=== PATIENT | male | born 2000 | race Caucasian/White ===

== ENCOUNTER 2021-07-31 23:27 | Emergency (ER) | payer BC, OTHER ==
[~2021-07-31] VITALS: Ht 182.8 cm; Wt 120.2 kg
[~2021-07-31 23:27] MED LIST: AMOXICILLIN500 MG PO; BACTRIM 400 MG-1 TAB PO; CIPRODEX 0.3%-7.5 ML OT; INTUNIV4 MG PO; LOMOTIL 0.025 M1 TA1 PO; MOTRIN400 MG PO; NKHM; Zofran4 MG PO
[2021-07-31] MEDS ORDERED: AUGMENTIN 875875 MG PO (23:39)
== END 2021-07-31 23:47 | disposition home or self-care (01) ==
LOC: ED 23:27
DX: H66.92 Otitis media, unspecified, left ear (principal); Z88.8 Allergy status to other drugs, medicaments and biological substances; Z79.899 Other long term (current) drug therapy

== ENCOUNTER 2022-10-22 16:04 | Emergency (ER) | payer BC, OTHER ==
[~2022-10-22] VITALS: Ht 182.8 cm; Wt 120.2 kg
[~2022-10-22 16:04] MED LIST changes: +AUGMENTIN 875875 MG PO
[2022-10-22 17:38] LABS: BASO # 0.1 10*3/uL (0.0-0.1); BASO % 0.3 % (0.0-1.0); EOS # 0.3 10*3/uL (0.0-0.4); EOS % 2.1 % (1.0-4.0); HEMATOCRIT 46.1 % (42.0-52.0); LYMPH # 2.8 10*3/uL (1.3-4.4); LYMPH % 18.6 % (27.0-41.0); MEAN CELL VOLUME 86.3 fl (80.0-94.0); MEAN CORPUSCULAR HGB 27.3 pg (27.0-31.0); MEAN CORPUSCULAR HGB CONC 31.7 g/dl (33.0-37.0); MEAN PLATELET VOLUME 10.2 fl (9.6-12.3); MONO # 1.4 10*3/uL (0.1-1.0); MONO % 9.1 % (3.0-9.0); NEUT # 10.5 10*3/uL (2.3-7.9); NEUT % 69.3 % (47.0-73.0); PLATELET COUNT AUTOMATED 277 10*3/uL (130-400); RED BLOOD COUNT 5.34 10*6/uL (4.50-5.90); RED CELL DISTRI WIDTH 12.9 % (0-14.5); WHITE BLOOD COUNT 15.2 10*3/uL (4.8-10.8)
[2022-10-22 17:53] LABS: ALKALINE PHOSPHATASE 101 U/L (46-116); BUN 8 mg/dl (9-23); CHLORIDE 105 mmol/L (98-107); POTASSIUM 4.4 mmol/L (3.4-5.1); SGPT/ALT 39 U/L (10-49); TOTAL PROTEIN 7.7 gm/dL (6.0-8.0)
[2022-10-22] MEDS ORDERED: AMOX-CLAV 875-1 EACH PO (20:06)
== END 2022-10-22 20:15 | disposition home or self-care (01) ==
LOC: ED 16:04
PROVIDERS: Nurse Practitioner Family
DX: L05.91 Pilonidal cyst without abscess (principal); F17.200 Nicotine dependence, unspecified, uncomplicated; Z79.899 Other long term (current) drug therapy; Z88.8 Allergy status to other drugs, medicaments and biological substances

== ENCOUNTER 2023-01-04 12:49 | Emergency (ER) | payer BC, OTHER ==
[~2023-01-04] VITALS: Ht 182.8 cm; Wt 123.4 kg
[~2023-01-04 12:49] MED LIST changes: +AMOX-CLAV 875-1 EACH PO
[2023-01-04] MEDS ORDERED: PREDNISONE20 M1 PO (14:33)
== END 2023-01-04 14:42 | disposition home or self-care (01) ==
LOC: ED 12:49
DX: M77.8 Other enthesopathies, not elsewhere classified (principal); Z88.8 Allergy status to other drugs, medicaments and biological substances

== ENCOUNTER 2023-06-24 19:44 | Emergency (ER) | payer BC, OTHER ==
[~2023-06-24 19:44] MED LIST changes: +PREDNISONE20 M1 PO
== END 2023-06-24 22:31 | disposition left against medical advice (07) ==
LOC: ED 19:44
DX: H92.02 Otalgia, left ear (principal); J02.9 Acute pharyngitis, unspecified; Z53.21 Procedure and treatment not carried out due to patient leaving prior to being seen by health care provider